=== PATIENT | female | born 1965 | race Caucasian/White ===

== ENCOUNTER → 2017-07-24 13:28 | Outpatient (CLI) | payer MEDICARE ==
[2013-10-12 15:00] VITALS: BMI 19.9
[~2017-07-24 13:28] MED LIST: COUMADIN5 MG PO; CYMBALTA60 MG PO; DESERYL100 MG PO; DILAUDID8 MG PO; ESTRACE2 MG PO; HUMALOG 30100 UNITS/; KLONOPIN0.5 MG PO; NICODERM C1 PATCH .3 TD; NORCO 10/325 TA1 TA1 PO; PRAVACHOL20 MG PO; PRINIVIL20 MG PO; TRIGLIDE160 MG PO; ZANAFLEX4 MG PO
== END | disposition home or self-care (01) ==
LOC: D.MRI 13:28
DX: M77.51 Other enthesopathy of right foot and ankle (principal)

== ENCOUNTER → 2018-03-27 14:55 | Outpatient (CLI) | payer MEDICARE ==
[2013-10-12 15:00] VITALS: BMI 19.9
== END | disposition home or self-care (01) ==
LOC: D.MRI 14:55
DX: M17.12 Unilateral primary osteoarthritis, left knee (principal)

== ENCOUNTER 2018-05-18 05:20 | Day surgery (SDC) | payer MEDICARE ==
[2018-05-15 09:03] LABS: MCHC 33.3 g/dL (31.0-37.0); MCV 87.1 fL (80.0-100.0); MEAN PLATELET VOLUME 9.4 fL (7.4-10.4); RBC 3.79 10x6/uL (4.00-5.40); RDW 12.5 % (11.5-14.5); WBC 5.1 10x3/uL (4.8-10.8)
[2018-05-15 09:30] LABS: ANION GAP 13.6 mmol/L (8-16); CALCIUM 8.7 mg/dL (8.5-10.1); CARBON DIOXIDE 25.1 mmol/L (21.0-32.0); POTASSIUM - SERUM 4.7 mmol/L (3.5-5.1)
[~2018-05-18] VITALS: Ht 165.1 cm; Wt 72.6 kg
--- NOTE | ~2018-05-18 | OP ---
PATIENT NAME: TAGN SERVIN MEDICAL RECORD: [id number] :69 LOCATION:[facility] ADMISSION DATE: SURGEON: NIKOLAY BROTHERS MD DATE OF OPERATION: 05/18/2018 PREOPERATIVE DIAGNOSIS: Patellofemoral syndrome of the left knee. POSTOPERATIVE DIAGNOSIS: Patellofemoral syndrome of the left knee. PROCEDURE: Left knee arthroscopy with arthroscopic lateral release. SURGEON: Nikolay Brothers MD ANESTHESIA: General. INTRAOPERATIVE COMPLICATIONS: None. SUMMARY OF PATHOLOGIC FINDINGS: The patient did have a small area of full thickness chondral deficit. It was less than 2 x 2 mm and had already had a fibrous ingrowth. I felt like that the Cartiform was probably more than needed. OPERATIVE SUMMARY IN DETAIL: After obtaining the appropriate preoperative orthopedic surgery consent as well as anesthetic consultation, evaluation, and clearance, the patient was brought to the operating room and placed on the operating table in supine position. After general laryngeal mask airway administered, tourniquet was placed on the proximal aspect of the left lower extremity. The left lower extremity was then prepped and draped in routine sterile fashion. The leg was elevated and exsanguinated. Tourniquet was inflated to 250 mmHg. Routine inferolateral portal was established followed by superomedial portal and inferomedial portal. 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 At this point, the arthroscopy was switched from lateral to medial portal. Direct visualization of the lateral retinaculum was then established. An [place] hook tip ablation system was then used to release the medial retinaculum from just below the vastus lateralis ligament to the inferior lateral portal. Having completed this, the knee was insufflated with 30 cc of 0.25% Marcaine. Arthroscopy portals were closed in routine fashion. Sterile dressings were applied. The tourniquet was deflated. The patient was awakened and taken to recovery room in stable condition. All final needle and sponge counts were correct. TRANSINT:[id number] Voice Confirmation ID: [id number] DOCUMENT ID: [id number] NIKOLAY BROTHERS MD at 1510 CC: [id number] DICTATION DATE: 05/18/18 0816 [employer] LOAN PROCESSOR: 05/18/18 1215 [facility] 05/18/18 [place] [id number] [place] [id number]
[~2018-05-18 05:20] MED LIST changes: +AMITRIPTYLINE100 MG PO; +BAYER CHEWABLE81 MG PO; +LASIX40 MG PO; +LEXAPRO20 MG PO; +LYRICA50 MG PO; +MULTIGEN CAPLET1 TAB PO
[2018-05-18 05:40] VITALS: BP 114/56; Ht 165.1 cm; Wt 72.6 kg
[2018-05-18] MEDS ORDERED: DILAUDID2 MG PO (08:14)
== END 2018-05-18 11:15 | disposition home or self-care (01) ==
LOC: D.OPS 05:20 → D.PAN 07:30 → D.OPS 07:30
PROVIDERS: Anesthesiology
DX: M22.2X2 Patellofemoral disorders, left knee (principal); Z01.812 Encounter for preprocedural laboratory examination